=== PATIENT | male | born 1965 | race American Indian/Alaskan Native ===

== ENCOUNTER 2020-06-26 06:23 | Day surgery (SDC) | payer OTHER ==
[~2020-06-26 06:23] MED LIST: Dextrose 5%-0.45% NaCl 1,000 ML IV SCH; Sodium Chloride 0.9% 10 ML Syringe FLUSH PRN
[2020-06-26] MEDS ORDERED: fentaNYL 100 MCG/2 ML SDV IV ONE ×3 (06:24→07:46)
[2020-06-26] MEDS ORDERED: Midazolam 1 MG/ML 2 ML SDV IV ONE ×7 (06:24→07:53)
[2020-06-26] MEDS ORDERED: fentaNYL 100 MCG/2 ML SDV ONE (06:39)
[2020-06-26] MEDS ORDERED: Midazolam 1 MG/ML 2 ML SDV ONE (06:39)
--- NOTE | 2020-06-26 16:30 | OR ---
DATE: 06/26/2020 PROCEDURE: Total colonoscopy. INSTRUMENT USED: PCF-H190DL Olympus video colonoscope. PREMEDICATIONS: Fentanyl 100 mcg intravenous, Versed 4 mg intravenous. The procedure was done under pulse oximetry, BP recording, and dice dealer. INDICATION: Screening colonoscopic examination is done for detection of any polypoid lesions and removal, endoscopic hemostasis therapy if needed. DESCRIPTION OF PROCEDURE: Initial rectal exam was unremarkable. Rigid anoscopy was normal. The colonoscope was passed with ease up to the ileocecal area. Photographs were taken of the normal-appearing cecum, identified by landmarks of appendiceal orifice and double-bulged ileocecal folds. No bleeding was noted from any of the visualized areas at the commencement of the examination. The bowel preparation was found to be adequate. [place] scale 2 in all the regions, total score 6. No stricture. No vascular ectasia. No large isolated ulcerations seen. No evidence of diffuse inflammatory bowel disease in the form of friability, contact bleeding, or ulcerations. No polyp or tumor mass identified. Probing the proximal sides of folds and flexures using adequate distention and clearing up the stool material, withdrawal of the scope was made, cecum to rectum time over 6 minutes. No bleeding was noted from any of the visualized areas at the completion of examination. IMPRESSION: Normal study. The patient tolerated the procedure well. [facility] /[id number]
--- NOTE | 2020-06-26 16:30 | LETTER ---
06/26/2020 Jane Nava, NES[facility] [address] [place] [address] RE: NADEGEMILES Vaca : 1965 Dear Ms. Nava: Mr. Miles Denton had colonoscopic examination done this morning, and he tolerated the procedure well. I herewith send a copy of the endoscopy note and photographs for your review. Thank you. Sincerely, [facility] /[id number]
== END 2020-06-26 10:14 | disposition home or self-care (01) ==
LOC: DL.ENDO 06:23
PROVIDERS: ATTEND Internal Medicine Gastroenterology
DX: Z12.11 Encounter for screening for malignant neoplasm of colon (principal); K21.9 Gastro-esophageal reflux disease without esophagitis; E03.9 Hypothyroidism, unspecified; E78.5 Hyperlipidemia, unspecified; F17.210 Nicotine dependence, cigarettes, uncomplicated; E11.9 Type 2 diabetes mellitus without complications; G89.29 Other chronic pain; E66.09 Other obesity due to excess calories; I25.10 Atherosclerotic heart disease of native coronary artery without angina pectoris; Z80.0 Family history of malignant neoplasm of digestive organs; Z79.899 Other long term (current) drug therapy; Z68.32 Body mass index [BMI] 32.0-32.9, adult
CPT/HCPCS: 45378; J2250; J3010; J7042

== ENCOUNTER 2021-02-12 15:03 | Emergency (ER) | payer OTHER ==
--- NOTE | 2021-02-12 15:35 | EDM.PDOC ---
<CharissaJinadinahRickieNely - Last Filed: 02/12/21 15:30> ED HPI GENERAL MEDICAL PROBLEM - General Chief Complaint: Laceration Stated Complaint: LACERATION ON HEAD Time Seen by Provider: 02/12/21 15:20 Source of Information: Reports: Patient History Limitations: Reports: No Limitations - History of Present Illness INITIAL COMMENTS - FREE TEXT/NARRATIVE: The patient is a 55 yo male who presents to the ED with a head laceration on the top of his head. The patient was replacing a light bulb with the help of a lift when he cut his head on a metal bar. They patient states he did not lose consciousness, but he did feel a mildy dizzy at the time of injury. On arrival he denies any headaches, dizziness, vomiting, nausea, or trouble with speech or balance. He offers no other acute concerns. He states his tetanus was last updated one year ago. Onset: Today Location: Reports: Head Head Pain Score (Numeric/FACES): 4 - Related Data Allergies Allergy/AdvReac Type Severity Reaction Status Date / Time No Known Allergies Allergy Verified 02/12/21 15:16 Home Meds: Home Meds Aspirin [Ecotrin EC] 81 mg PO DAILY 01/30/20 [History] Levothyroxine [Synthroid] 50 mcg PO DAILY 01/30/20 [History] Metoprolol Tartrate [Lopressor] 25 mg PO BID 01/30/20 [History] Montelukast [Singulair] 10 mg PO DAILY 01/30/20 [History] Nitroglycerin [Nitrostat] 0.4 mg SL ASDIRECTED PRN 01/30/20 [History] Melatonin 10 mg PO BEDTIME PRN 02/12/20 [History] Multivitamin with Minerals [Multivitamins with Minerals] 1 tab PO DAILY 02/12/20 [History] traMADol [Ultram] 50 mg PO Q6HR PRN 02/12/20 [History] atorvaSTATin [Lipitor] 20 mg PO BEDTIME 02/13/20 [History] Past Medical History HEENT History: Reports: None Cardiovascular History: Reports: CAD, High Cholesterol, Hypertension, [place] Respiratory History: Reports: None Gastrointestinal History: Reports: GERD, Other (See Below) Other Gastrointestinal History: TREATED H PYLORI INFECTION Genitourinary History: Reports: None Musculoskeletal History: Reports: Back Pain, Chronic, Other (See Below) Other Musculoskeletal History: DEGENERATIVE DISC DISEASE Neurological History: Reports: None Psychiatric History: Reports: Addiction, Other (See Below) Other Psychiatric History: POST ALCOHOLISM Endocrine/Metabolic History: Reports: Diabetes, Type II, Hypothyroidism Other Endocrine/Metabolic History: diet controlled Hematologic History: Reports: None Immunologic History: Reports: None Oncologic (Cancer) History: Reports: None Dermatologic History: Reports: None - Infectious Disease History Infectious Disease History: Reports: Measles, Mumps - Past Surgical History Head Surgeries/Procedures: Reports: None HEENT Surgical History: Reports: None Cardiovascular Surgical History: Reports: Coronary Artery Bypass Respiratory Surgical History: Reports: None GI Surgical History: Reports: Colonoscopy, EGD Male Surgical History: Reports: Vasectomy Musculoskeletal Surgical History: Reports: Other (See Below) Other Musculoskeletal Surgeries/Procedures:: ELBOW SURGERY Social & Family History - Tobacco Use Tobacco Use Status *Q: Former Tobacco User Years of Tobacco use: 20 Packs/Tins Daily: 1 Used Tobacco, but Quit: Yes Month/Year Tobacco Last Used: november Second Hand Smoke Exposure: No - Caffeine Use Caffeine Use: Reports: Coffee, Soda Caffeine Use Comment: 20 oz daily - Recreational Drug Use Recreational Drug Use: No ED ROS GENERAL - Review of Systems Review Of Systems: See Below Constitutional: Reports: No Symptoms HEENT: Reports: Other (laceration on the top of head ) Respiratory: Reports: No Symptoms Cardiovascular: Reports: No Symptoms Endocrine: Reports: No Symptoms GI/Abdominal: Reports: No Symptoms Musculoskeletal: Reports: No Symptoms Skin: Reports: Lesions Neurological: Reports: No Symptoms Hematologic/Lymphatic: Reports: No Symptoms Immunologic: Reports: No Symptoms ED EXAM, SKIN/RASH Exam: See Below Exam Limited By: No Limitations General Appearance: Alert, WD/WN, No Apparent Distress Eye Exam: Bilateral Eye: EOMI, Normal Inspection Head: Normocephalic (2 cm laceration to the superior aspect of scalp) Neck: Normal Inspection, Supple, Non-Tender, Full Range of Motion Respiratory/Chest: No Respiratory Distress, Lungs Clear, Normal Breath Sounds, No Accessory Muscle Use, Chest Non-Tender Cardiovascular: Normal Peripheral Pulses, Regular Rate, Rhythm, No Edema, No Gallop, No JVD, No Murmur, No Rub GI/Abdominal: Normal Bowel Sounds, Soft, Non-Tender, No Organomegaly, No Di stention, No Abnormal Bruit, No Mass Extremities: Normal Inspection, Normal Range of Motion, Non-Tender, No Pedal Edema, Normal Capillary Refill Neurological: Alert, Oriented, CN II-XII Intact, Normal Cognition, Normal Gait, Normal Reflexes, No Motor/Sensory Deficits Psychiatric: Normal Affect, Normal Mood Skin: Wound/Incision (2cm laceration to the superior aspect of the scalp; bleeding well-controlled), Other Location, Skin: Head Characteristics: Other Departure - Departure Time of Disposition: 15:40 Disposition: Home, Self-Care 01 Condition: Good Clinical Impression: Laceration - Discharge Information *PRESCRIPTION DRUG MONITORING PROGRAM REVIEWED*: No *COPY OF PRESCRIPTION DRUG MONITORING REPORT IN PATIENT TESSY: No Instructions: Sutures, Otley, or Adhesive Wound Closure, [id number] Referrals: Kvng Izquierdo [Primary Care Provider] - Forms: ED Department Discharge Care Plan Goals: The patient has a laceration on the his superior scalp. The area was cleaned and 4 sutures were applied to the laceration. The patient should keep the area clean. The patient should follow up with PCP to have his milana removed in 7 days. If he develops a severe headache, nausea, vomiting, dizziness, changes in mood, or signs of infection at the site of injury he should follow up in the ED. Follow up with PCP or ED if he has any other acute concerns. Sepsis Event Note (ED) - Evaluation Sepsis Screening Result: No Definite Risk <Yael Londono - Last Filed: 02/12/21 16:54> ED SKIN PROCEDURES - Laceration/Wound Repair Midline Tingley Head Appearance: Subcutaneous Distal NVT: Neuro & Vascular Intact Anesthetic Type: Other (none) Skin Prep: Chlorhexidine (Hibiciens) Exploration/Debridement/Repair: Wound Explored, In a Bloodless Field, Explored to Base, No Foreign Material Found Closed with: Otley Lac/Wound length In cm: 2 # of Sutures: 4 Drain Placement: No Sterile Dressing Applied: None Tetanus Status Addressed: Yes Complications: No Course - Vital Signs Last Recorded V/S: Last Vital Signs Temp 97.1 F 02/12/21 15:12 Pulse 78 02/12/21 15:12 Resp 16 02/12/21 15:12 BP 143/79 H 02/12/21 15:12 Pulse Ox 94 L 02/12/21 15:12 Sepsis Event Note (ED) - Focused Exam Vital Signs: Vital Signs Temp Pulse Resp BP Pulse Ox 02/12/21 15:12 97.1 F 78 16 143/79 H 94 L
== END 2021-02-12 15:50 | disposition home or self-care (01) ==
LOC: DL.ED 15:03
DX: S01.01XA Laceration without foreign body of scalp, initial encounter (principal); I10 Essential (primary) hypertension; E78.00 Pure hypercholesterolemia, unspecified; I25.10 Atherosclerotic heart disease of native coronary artery without angina pectoris; I25.2 Old myocardial infarction; E11.9 Type 2 diabetes mellitus without complications; E03.9 Hypothyroidism, unspecified; Z87.891 Personal history of nicotine dependence; Z79.82 Long term (current) use of aspirin; Z79.899 Other long term (current) drug therapy; W26.8XXA Contact with other sharp object(s), not elsewhere classified, initial encounter
CPT/HCPCS: 12001; 99282-25; 99283